=== PATIENT | male | born 1990 | race Two or more races ===

== ENCOUNTER 2018-07-09 22:33 | Emergency (ER) | payer OTHER ==
[~2018-07-09] VITALS: Ht 170.2 cm; Wt 83.9 kg
[2018-07-09] MEDS ORDERED: CARTIA XT120 MG (23:05)
[2018-07-09] MEDS ORDERED: SINGULAIR10 MG (23:05)
[2018-07-10] MEDS ORDERED: KETO10TA2 PO (02:15)
== END 2018-07-10 02:22 | disposition home or self-care (01) ==
LOC: ER 22:33
DX: M54.5 Low back pain (principal)

== ENCOUNTER 2019-02-08 01:11 | Emergency (ER) | payer OTHER ==
[~2019-02-08] VITALS: Ht 170.2 cm; Wt 86.2 kg
[~2019-02-08 01:11] MED LIST: CARTIA XT120 MG; KETO10TA2 PO; SINGULAIR10 MG
[2019-02-08] MEDS ORDERED: MEDROLPACK PO (04:24)
[2019-02-08] MEDS ORDERED: GUAIFEN-CODEINE10 ML PO (04:24)
== END 2019-02-08 04:40 | disposition home or self-care (01) ==
LOC: ER 01:11
DX: J45.909 Unspecified asthma, uncomplicated (principal)

== ENCOUNTER 2023-05-13 22:06 | Emergency (ER) | payer OTHER ==
[~2023-05-13] VITALS: Ht 175.3 cm; Wt 95.3 kg
[~2023-05-13 22:06] MED LIST changes: +GUAIFEN-CODEINE10 ML PO; +MEDROLPACK PO
[2023-05-13] MEDS ORDERED: ZEGERID 40 MG1 EACH PO (22:16)
[2023-05-13] MEDS ORDERED: ALL DAY ALLERGY10 M3 PO (22:16)
[2023-05-14] MEDS ORDERED: METHYLPREDNISOLONE SOD SUCC 125 MG VIAL IV STA (00:43)
[2023-05-14] MEDS ORDERED: HYDROCODONE/CHLORPHEN P-STIREX 5 ML ML PO STA (00:44)
[2023-05-14] MEDS ORDERED: IPRATROPIUM BROMIDE 0.5 MG/2.5 ML AMPUL.NEB IH STA (00:47)
[2023-05-14] MEDS ORDERED: ALBUTEROL SULFATE 3 ML/2.5 MG AMPUL.NEB IH SCH (01:00)
[2023-05-14 01:33] LABS: HEMATOCRIT 39.7 % (39.0-48.0); HEMOGLOBIN 13.9 g/dL (13-16.00); MEAN CELL VOLUME 84.7 fL (80.0-100.00); MEAN CORPUSCULAR HEMOGLOBIN 29.6 pg (27.00-32.0); MEAN CORPUSCULAR HGB CONC 34.9 g/dl (32.0-36.0); PLATELET COUNT 279 K/uL (150-450); RED BLOOD COUNT 4.68 M/uL (4.00-6.00); RED CELL DISTRIBUTION WIDTH 12.7 % (11.5-14.5)
== END 2023-05-14 04:04 | disposition home or self-care (01) ==
LOC: ER 22:07
DX: J45.991 Cough variant asthma (principal); J06.9 Acute upper respiratory infection, unspecified; Z20.822 Contact with and (suspected) exposure to COVID-19; Z88.8 Allergy status to other drugs, medicaments and biological substances; Z91.013 Allergy to seafood

== ENCOUNTER 2023-05-30 20:59 | Emergency (ER) | payer OTHER ==
[~2023-05-30] VITALS: Ht 167.6 cm; Wt 94.8 kg
[~2023-05-30 20:59] MED LIST changes: +ALL DAY ALLERGY10 M3 PO; +ZEGERID 40 MG1 EACH PO
[2023-05-30] MEDS ORDERED: METHYLPREDNISOLONE SOD SUCC 125 MG VIAL IV STA (21:50)
[2023-05-30] MEDS ORDERED: KETOROLAC TROMETHAMINE 30 MG VIAL IV STA (21:51)
[2023-05-30] MEDS ORDERED: GUAIFENESIN 200 MG/10 ML BLIST.PACK PO STA (21:52)
[2023-05-30] MEDS ORDERED: IPRATROPIUM BROMIDE 0.5 MG/2.5 ML AMPUL.NEB IH SCH (22:00)
[2023-05-30 23:14] LABS: HEMOGLOBIN 13.2 g/dL (13-16.00); MEAN CORPUSCULAR HEMOGLOBIN 29.2 pg (27.00-32.0); MEAN CORPUSCULAR HGB CONC 34.8 g/dl (32.0-36.0); PLATELET COUNT 268 K/uL (150-450); RED BLOOD COUNT 4.52 M/uL (4.00-6.00); RED CELL DISTRIBUTION WIDTH 13.4 % (11.5-14.5)
[2023-05-30] MEDS ORDERED: TRAMADOL HCL 50 MG TABLET PO STA (23:49)
== END 2023-05-31 01:09 | disposition home or self-care (01) ==
LOC: ER 21:00
PROVIDERS: General Practice
DX: R05.3 Chronic cough (principal); Z20.822 Contact with and (suspected) exposure to COVID-19; Z91.013 Allergy to seafood; Z91.041 Radiographic dye allergy status

== ENCOUNTER 2023-12-15 16:34 | Emergency (ER) | payer OTHER ==
[~2023-12-15] VITALS: Ht 170.2 cm; Wt 98.0 kg
[2023-12-15] MEDS ORDERED: FAMOtidine 10 MG/ML (4ML VIAL) IV ONE (17:15)
[2023-12-15] MEDS ORDERED: MONTELUKAST SODIUM 10 MG TABLET PO ONE (17:15)
[2023-12-15] MEDS ORDERED: LEVALBUTEROL HCL 0.63 MG/3 ML SOLUTION IH ONE (17:15)
[2023-12-15] MEDS ORDERED: METROnidazole 500 MG TABLET PO ONE (17:15)
[2023-12-15] MEDS ORDERED: ONDANSETRON HCL 2 MG/ML VIAL IV ONE (17:15)
[2023-12-15] MEDS ORDERED: BENZONATATE 100 MG CAPSULE PO ONE (17:15)
[2023-12-15] MEDS ORDERED: 0.9 % SODIUM CHLORIDE 1,000 ML IV ONE (17:15)
[2023-12-15 17:32] LABS: HEMATOCRIT 40.2 % (39.0-48.0); HEMOGLOBIN 14.3 g/dL (13-16.00); MEAN CELL VOLUME 83.2 fL (80.0-100.00); MEAN CORPUSCULAR HEMOGLOBIN 29.6 pg (27.00-32.0); MEAN CORPUSCULAR HGB CONC 35.5 g/dl (32.0-36.0); PLATELET COUNT 272 K/uL (150-450); RED BLOOD COUNT 4.84 M/uL (4.00-6.00)
[2023-12-15 17:53] LABS: ALBUMIN 3.9 gm/dL (3.4-5.0); BILIRUBIN TOTAL 0.82 mg/dL (0.3-1.2); CREATININE SERUM 1.06 mg/dL (0.70-1.30); GFR 79.5; GLOBULINA 3.4 G/DL (2.4-3.5); POTASSIUM 3.39 mEq/L (3.5-5.1); TOTAL PROTEIN 7.3 gm/dL (6.4-8.2)
[2023-12-15 17:56] LABS: PH,URINE 5.5 (5.0-8.0); URINE APPEARANCE Clear; URINE BILIRRUBIN Negative (NEGATIVE); URINE BLOOD Negative; URINE COLOR Yellow; URINE GLUCOSE Negative (NEGATIVE); URINE KETONE 15 (NEGATIVE); URINE LEUKOCYTE Negative; URINE NITRATE Negative; URINE PROTEIN 30 (NEGATIVE)
[2023-12-15 18:00] LABS: URINE BACTERIA 26.4 uL (0.0-1933); URINE EPITHELIAL CELLS 4.1 uL (0.0-38.8); URINE WBC 6.9 uL (0.0-23.2)
[2023-12-15 18:01] LABS: URINE CAST 0.15 uL (0.0-1.40); URINE RBC 1.8 uL (0.0-20.8)
[2023-12-15] MEDS ORDERED: KETOROLAC TROMETHAMINE 30 MG VIAL IM ONE (19:00)
[2023-12-15] MEDS ORDERED: PEPCID AC20 MG PO (19:18)
[2023-12-15] MEDS ORDERED: BENZONATATE200 M1 PO (19:18)
[2023-12-15] MEDS ORDERED: METRONIDAZOLE500 MG PO (19:18)
[2023-12-15] MEDS ORDERED: ZOFRAN8 MG PO (19:18)
== END 2023-12-15 19:23 | disposition home or self-care (01) ==
LOC: ER 16:36
PROVIDERS: General Practice
DX: R19.7 Diarrhea, unspecified (principal); R05.9 Cough, unspecified; I10 Essential (primary) hypertension; Z88.8 Allergy status to other drugs, medicaments and biological substances; Z87.09 Personal history of other diseases of the respiratory system; Z91.013 Allergy to seafood; Z20.822 Contact with and (suspected) exposure to COVID-19

== ENCOUNTER 2023-12-19 14:33 | Emergency (ER) | payer OTHER ==
[~2023-12-19] VITALS: Ht 170.2 cm; Wt 95.3 kg
[~2023-12-19 14:33] MED LIST changes: +BENZONATATE200 M1 PO; +METRONIDAZOLE500 MG PO; +PEPCID AC20 MG PO; +ZOFRAN8 MG PO
[2023-12-19] MEDS ORDERED: 0.9 % SODIUM CHLORIDE 1,000 ML IV STA (17:08)
[2023-12-19] MEDS ORDERED: FAMOTIDINE/PF 20 MG/2 ML VIAL IV ONE (17:15)
[2023-12-19] MEDS ORDERED: MORPHINE SULFATE 2 MG/ML SYRINGE IV ONE (17:15)
[2023-12-19] MEDS ORDERED: ONDANSETRON HCL 2 MG/ML VIAL IV ONE ×2 (17:15→23:45)
[2023-12-19 17:44] LABS: HEMATOCRIT 44.2 % (39.0-48.0); HEMOGLOBIN 15.1 g/dL (13-16.00); MEAN CELL VOLUME 83.4 fL (80.0-100.00); MEAN CORPUSCULAR HEMOGLOBIN 28.6 pg (27.00-32.0); MEAN CORPUSCULAR HGB CONC 34.2 g/dl (32.0-36.0); PLATELET COUNT 355 K/uL (150-450); RED CELL DISTRIBUTION WIDTH 12.7 % (11.5-14.5)
[2023-12-19 18:25] LABS: ALBUMIN 3.9 gm/dL (3.4-5.0); BILIRUBIN TOTAL 0.71 mg/dL (0.3-1.2); CALCIUM 9.1 mg/dL (8.5-10.1); CREATININE SERUM 1.17 mg/dL (0.70-1.30); GFR 70.94; GLOBULINA 3.7 G/DL (2.4-3.5); INR 1.14; POTASSIUM 3.76 mEq/L (3.5-5.1); PROTHROMBIN TIME 12.3 SECONDS (9.0-11.5); TOTAL PROTEIN 7.6 gm/dL (6.4-8.2)
[2023-12-19 18:41] LABS: PARTIAL THROMBOPLASTIN TIME 48.2 SECONDS (22.0-34.0)
[2023-12-19] MEDS ORDERED: KETOROLAC TROMETHAMINE 30 MG VIAL IV ONE (19:15)
[2023-12-19] MEDS ORDERED: IPRATROPIUM/ALBUTEROL SULFATE 3 ML AMPUL.NEB IH ONE (19:30)
[2023-12-19] MEDS ORDERED: GUAIFENESIN 200 MG/10 ML BLIST.PACK PO ONE (19:30)
[2023-12-19] MEDS ORDERED: CIPROFLOXACIN IN 5 % DEXTROSE 400 MG/200 ML PIGGYBAG IV ONE (22:15)
[2023-12-19] MEDS ORDERED: METRONIDAZOLE/SODIUM CHLORIDE 500 MG/100 ML PIGGYBACK IV ONE (22:15)
[2023-12-19] MEDS ORDERED: ACETAMINOPHEN 500 MG GEL..CAP PO ONE (23:15)
== END 2023-12-20 00:30 | disposition home or self-care (01) ==
LOC: ER 14:35
PROVIDERS: Emergency Medicine
DX: K52.89 Other specified noninfective gastroenteritis and colitis (principal); Z91.013 Allergy to seafood; Z91.041 Radiographic dye allergy status; Z20.822 Contact with and (suspected) exposure to COVID-19